=== PATIENT | female | born 1995 | race American Indian/Alaskan Native ===

== ENCOUNTER 2020-01-12 07:24 | Day surgery (SDC) | payer OTHER ==
--- NOTE | 2020-01-11 08:52 | History and Physical Report ---
History of Present Illness Date of examination: 01/05/20 Chief complaint: Missed History of present illness: Pt is a 24 year old primigravida who presents for surgical management of missed at 6 wks. Past History Past Surgical History: no surgical history Family/Genetic History: none Social history: no significant social history - Obstetrical History : 1 Medications and Allergies Allergies Allergy/AdvReac Type Severity Reaction Status Date / Time Sulfa (Sulfonamide Allergy Unknown Verified 01/06/20 15:22 Antibiotics) Home Medications Medication Instructions Recorded Confirmed Last Taken Type No Known Home Medications [No 01/06/20 01/06/20 Unknown History Reported Home Medications] Active Meds: Active Medications Misoprostol (Cytotec) 800 mcg TN ONCE ONE Stop: 01/12/20 08:44 Review of Systems All systems: negative - Physical Exam Breasts: Positive: deferred Cardiovascular: Regular rate Lungs: Positive: Clear to auscultation Abdomen: Positive: soft Results All other labs normal. Ultrasound: report reviewed Assessment and Plan A: Missed at 6 wks P: Proceed with suction dilation and curettage and other indicated procedures.
[~2020-01-12 07:24] MED LIST: DOXYCYCLINE HYCLATE 100 MG in SODIUM CHLORIDE 0.9% 250ML 250 ML IV ONE; LACTATED RINGERS 1,000 ML IV SCH; METHYLERGONOVINE MALEATE 0.2 MG/ML VIAL IM ONE
--- NOTE | 2020-01-12 08:07 | Anesthesia Day of Surgery ---
Anesthesia Day of Surgery - Day of Surgery Patient Examined: Yes Patient H&P Reviewed: Yes Patient is NPO: Yes
--- NOTE | 2020-01-12 08:10 | Anesthesia Consultation ---
Anesthesia Consult and Med Hx Date of service: 01/12/20 - Airway Anesthetic Teeth Evaluation: Good ROM Head & Neck: Adequate Mental/Hyoid Distance: Adequate Mallampati Class: Class I Intubation Access Assessment: Good - Pre-Operative Health Status ASA Pre-Surgery Classification: ASA2 Proposed Anesthetic Plan: General - Cardiovascular System Hx Heart Murmur: Yes (Pt reports negative ECHO several years ago) - Central Nervous System Hx Psychiatric Problems: No - Gastrointestinal Hx Gastroesophageal Reflux Disease: Yes - Hematic Hx Sickle Cell Disease: No - Other Systems Hx Substance Use: Yes (Past use of marijuana, stopped when became preg) Hx Cancer: No
[2020-01-12] MEDS ORDERED: METHYLERGONOVINE MALEATE 0.2 MG/ML VIAL IM NR (08:43)
[2020-01-12] MEDS ORDERED: miSOPROStol 200 MCG TAB PR NR (08:43)
[2020-01-12] MEDS ORDERED: LACTATED RINGERS 1,000 ML IV SCH (09:00)
[2020-01-12] MEDS ORDERED: DOXYCYCLINE HYCLATE 100 MG in SODIUM CHLORIDE 0.9% 250ML 250 ML IV NR (09:00)
[2020-01-12] MEDS ORDERED: propofoL 200 MG/20 ML VIAL IV ONE (10:26)
[2020-01-12] MEDS ORDERED: LIDOCAINE MPF (2%) 20 MG/1 ML VIAL 5 ML ONE ×2 (10:26→11:04)
[2020-01-12] MEDS ORDERED: HYDROmorphone 1 MG/1 ML INJ ONE ×2 (10:26→11:43)
[2020-01-12] MEDS ORDERED: SILVER NITRATE APPLICATOR 1 EA TP ONE (10:33)
[2020-01-12 10:54] LABS: Hematocrit 32.4 % (30.3-42.9); Hemoglobin 11.3 gm/dl (10.1-14.3); Mean Corpuscular HGB Conc 35 % (30-34); Mean Corpuscular Volume 94 fl (79-97); Platelet Count 182 K/mm3 (140-440); Red Blood Count 3.43 M/mm3 (3.65-5.03); Red Cell Distribution Width 14.3 % (13.2-15.2)
[2020-01-12] MEDS ORDERED: miSOPROStol 200 MCG TAB PR ONE (11:25)
[2020-01-12] MEDS ORDERED: SODIUM CHLORIDE 0.9% IRR 1,500 ML BOTTLE IR ONE (11:26)
--- NOTE | 2020-01-12 11:26 | Operative Report ---
Operative Report Operative Report: Date of procedure: January 12, 2020 Preoperative diagnosis: 1) Missed at 6 wks Postoperative diagnosis: Same Procedure: Suction Dilation and Curettage Surgeon: Diamond Olmos MD Anesthesia: General with LMA Findings: 1) Small anteverted uterus with closed cervix EBL: 100 mL Urine output: 75 mL, clear, prior to procedure Specimens: products of conception to pathology Drains: None Complications: None. Counts correct x 2 Medications: Methergine 0.2 mg IM and Misoprostol 800 mcg per rectum Disposition: Stable to PACU Indication for procedure: Pt is a 24 year old primigravida who presents for surgical management of missed at 6wks Procedure in detail: After the risks, benefits, alternatives and complications were explained to the patient she gave informed consent for the procedure. She was subsequently taken to the operating room with her IV noted to be running well. She was placed in the dorsal supine position and SCDs were noted to be in place and functioning. General anesthesia was then induced without difficulty. She was then placed in the dorsal lithotomy position and prepped and draped in a normal sterile fashion. A timeout was performed. Exam under anesthesia yielded a small anteverted uterus. The bladder was emptied yielding 75 mL of clear urine. A bi-valve speculum was placed into the vagina for visualization of the cervix. A single-tooth tenaculum was placed on the anterior lip of the cervix. The cervix was serially dilated to a #21 Coronado dilator. A number 7 rigid suction curette was used to evacuate the uterine cavity. A sharp curettage was done and noted to be gritty x 4 quadrants. A dose of Methergine 0.2 mg IM was given. The single tooth tenaculum was removed from the cervix and hemostasis was noted. All instruments were then removed from the vagina atraumatically. Misoprostol 800 mcg was placed per rectum. At the time the procedure was ended. The patient was placed into the dorsal supine position and extubated without difficulty. She was then taken to the PACU in stable condition. All counts were correct x 2.
--- NOTE | 2020-01-12 11:30 | Short Stay Summary ---
Short Stay Documentation Date of service: 01/12/20 - History H&P: dictated Social history: no significant social history - Allergies and Medications Current Medications: Allergies Sulfa (Sulfonamide Antibiotics) Allergy (Verified 01/06/20 15:22) Unknown Home Medications Medication Instructions Recorded Confirmed Last Taken Type No Known Home Medications [No 01/06/20 01/12/20 Unknown History Reported Home Medications] Active Medications Doxycycline Hyclate 100 mg/ (Sodium Chloride) 250 mls @ 250 mls/hr IV ONCE NR; Protocol Stop: 01/12/20 13:00 Last Admin: 01/12/20 10:35 Dose: 250 mls/hr Documented by: Lactated Ringer's (Lactated Ringers) 1,000 mls @ 75 mls/hr IV DIRECT PADILLA Last Admin: 01/12/20 08:45 Dose: 75 mls/hr Documented by: Methylergonovine Maleate (Methergine) 0.2 mg IM ONCE NR Stop: 01/12/20 13:00 - Physical exam Breasts: deferred - Brief post op/procedure progress note Date of procedure: 01/12/20 Pre-op diagnosis: Missed at 6 wks Post-op diagnosis: same Procedure: Suction Dilation and Curettage Anesthesia: GETA Findings: Small anteverted uterus with closed cervix Surgeon: BRADY OLMOS Estimated blood loss: 50-100ml Pathology: list (products of conception) Specimen disposition: to lab Condition: stable - Hospital course Hospital course: Pt underwent suction dilation and curettage which she tolerated well. She was observed in the PACU until she met discharge criteria. She will follow up in the office in [address] Olmos. - Disposition Condition at discharge: Stable Disposition: [id number] TO HOME OR SELFCARE - Discharge Diagnoses (1) Missed Status: Acute Short Stay Discharge Plan Activity: other (Nothing in vagina, no tub baths for 4 wks ) Weight Bearing Status: Full Weight Bearing Diet: regular Follow up with: [facility] [Primary Care Provider] - 7 Days BRADY OLMOS MD [Staff Physician] - 14 Days (Please call to schedule postop appt ) Prescriptions: Ibuprofen [Motrin] 800 mg PO Q8HR PRN #30 tablet PRN Reason: Pain, Moderate (4-6) oxyCODONE /ACETAMINOPHEN [Percocet 5/325] 1 tab PO Q6HR PRN #20 tablet PRN Reason: Pain DOXYCYCLINE Hyclate [Vibramycin CAP] 100 mg PO Q12HR #14 capsule
[2020-01-12] MEDS ORDERED: KETOROLAC 30 MG/1 ML INJ ONE (11:33)
[2020-01-12] MEDS ORDERED: dexAMETHasone 20 MG/5 ML VIAL ONE (11:38)
[2020-01-12] MEDS ORDERED: ONDANSETRON 4 MG/2 ML INJ ONE (11:38)
[2020-01-12 11:50] VITALS: BP 118/68
[2020-01-12] MEDS ORDERED: HYDROmorphone 1 MG/1 ML INJ IV PRN (12:09)
--- NOTE | 2020-01-12 12:12 | Post Anesthesia Evaluation ---
- Post Anesthesia Evaluation Patient Participated: Yes Airway Patent: Yes Stable Respiratory Function: Yes Nausea/Vomiting: No Temp > 96.8F: Yes Pain Manageable: Yes Adequeate Hydration: Yes Anesthesia Complications: No Block Receding Appropriately: Not Applicable Patient on Ventilator: No
== END 2020-01-12 07:25 | disposition home or self-care (01) ==
LOC: OR 07:24
PROVIDERS: ATTEND Obstetrics & Gynecology
DX: O02.1 Missed abortion (principal); K21.9 Gastro-esophageal reflux disease without esophagitis; Z98.890 Other specified postprocedural states; Z88.2 Allergy status to sulfonamides; Z79.899 Other long term (current) drug therapy
CPT/HCPCS: 36415; 59820; 85027; 86850; 86900; 86901; 88305; J1100; J1170; J1885; J2210; J2405; J2704; J7050; J7120